=== PATIENT | female | born 1995 | race African-American/Black ===

== ENCOUNTER 2024-01-20 14:12 | Outpatient (CLI) | payer OTHER, SELFPAY ==
--- NOTE | ~2024-01-20 | MR_ITS ---
MRI of the left knee Clinical history: Pain Technique: Coronal proton density and proton density-weighted images, sagittal proton-density and T2 fat-sat images, and axial proton-density fat-saturated images were acquired. Findings: Anterior and posterior cruciate ligaments are intact. There is thickening and mild increase d signal of the proximal ACL with mild stranding soft tissue edema. Lateral collateral ligament compl ex is intact. Popliteus tendon is intact. Medial and lateral menisci are intact, without evidence of tear. Articular cartilage is well preserved throughout the knee. Bone marrow signals are unremarkable. Extensor mechanism is intact. No significant joint effusion or Lui's cyst. Impression: MCL sprain, grade 1 to mild grade 2. Reviewed, dictated and finalized at location . Impression: MCL sprain, grade 1 to mild grade 2.
== END 2024-01-20 14:13 | disposition home or self-care (01) ==
LOC: ANHIMG 14:13
PROVIDERS: Visit Provider Physician Assistant
DX: S83.412A Sprain of medial collateral ligament of left knee, initial encounter (principal); X58.XXXA Exposure to other specified factors, initial encounter
CPT/HCPCS: 73721